=== PATIENT | female | born 1975 | race Two or more races ===

== ENCOUNTER 2016-03-16 19:11 | Emergency (ER) | payer OTHER ==
[2016-03-16 19:49] VITALS: BP 128/69; PULSE 73; TEMP 98; BMI 26.6
[2016-03-16] MEDS ORDERED: CYCLOBENZAPRINE HCL 10 MG TABLET (FP) ONE (20:17)
[2016-03-16] MEDS ORDERED: KETOROLAC TROMETHAMINE 60 MG/2 ML VIAL ONE (20:17)
[2016-03-16] MEDS ORDERED: CYCLOBENZAPRINE HCL 10 MG TABLET (FP) PO ONE (20:21)
[2016-03-16] MEDS ORDERED: KETOROLAC TROMETHAMINE 60 MG/2 ML VIAL IM ONE (20:22)
--- NOTE | 2016-03-16 20:34 | PDOC ---
History of Present Illness - General Chief Complaint: Head/Neck problem Stated Complaint: NECK PAIN Time Seen by Provider: 03/16/16 19:52 History Source: Patient - History of Present Illness Timing/Duration: other Severity: moderate Associated Symptoms: denies: fever/chills, headaches, weakness Past History - Past Medical History Allergies/Adverse Reactions: Allergies Allergy/AdvReac Type Severity Reaction Status Date / Time No Known Allergies Allergy Verified 03/16/16 19:44 Home Medications: Ambulatory Orders No Home Medications 0 dose .ROUTE UTDICT 06/22/13 Acetaminophen [Tylenol] 650 mg PO Q6H #30 tablet 03/16/16 Cyclobenzaprine HCl [Flexeril -] 10 mg PO HS #9 tablet 03/16/16 Cancer: Yes (palpitations) - Psycho/Social/Smoking Cessation Hx Anxiety: No Suicidal Ideation: No Smoking Status: No Smoking History: Never smoked Have you smoked in the past 12 months: No Number of Cigarettes Smoked Daily: 0 Hx Alcohol Use: No Drug/Substance Use Hx: No Substance Use Type: None Review of Systems - Review of Systems Constitutional: No: Chills, Fever Musculoskeletal: Yes: Neck Pain Neurological: No: Headache, Numbness, Tingling, Weakness *Physical Exam - Vital Signs Last Vital Signs Temp Pulse Resp BP Pulse Ox 98 F 73 18 128/69 100 03/16/16 19:44 03/16/16 19:44 03/16/16 19:44 03/16/16 19:44 03/16/16 19:44 - Physical Exam General Appearance: Yes: Appropriately Dressed. No: Apparent Distress HEENT: positive: Normal Voice Neck: positive: Tender (to R trapezius). negative: Decreased range of motion, Lymphadenopathy (R), Lymphadenopathy (L) Respiratory/Chest: negative: Respiratory Distress Integumentary: positive: Dry, Warm Neurologic: positive: Fully Oriented, Alert, Normal Mood/Affect Medical Decision Making - Medical Decision Making 03/16/16 20:35 40-year-old female, no significant history, here with right-sided neck pain that patient awoke with this a.m. States pain worse with range of motion. Has not taken anything for symptoms. Denies headache, upper extremity weakness, dizziness, nausea or vomiting. Patient well-appearing and stable with + tenderness to palpation over right trapezius, full range of motion intact. Most likely muscular, no red flags. DC with pain control *DC/Admit/Observation/Transfer Diagnosis at time of Disposition: Neck pain - Discharge Dispostion Disposition: HOME Condition at time of disposition: Improved - Prescriptions Prescriptions: Cyclobenzaprine HCl [Flexeril -] 10 mg PO HS #9 tablet Acetaminophen [Tylenol] 650 mg PO Q6H #30 tablet - Patient Instructions Printed Discharge Instructions: DI for Neck Pain Additional Instructions: Take medication as directed until pain resolves
== END 2016-03-16 20:39 | disposition home or self-care (01) ==
LOC: JERFT 19:11 → JER 19:11 → JERFT 20:39
PROC: 3E0233Z Introduction of Anti-inflammatory into Muscle, Percutaneous Approach (ICD-10-PCS; principal; 2016-03-16)
DX: M54.2 Cervicalgia (principal)
CPT/HCPCS: 96372; 99281-25

== ENCOUNTER 2016-06-19 10:05 | Emergency (ER) | payer OTHER ==
[2016-06-19 10:09] VITALS: BP 110/62; PULSE 72; TEMP 97.9; BMI 29.9
--- NOTE | 2016-06-19 11:20 | PDOC ---
History of Present Illness - General Chief Complaint: Ear Problem Stated Complaint: LT EAR/AXILIA PAIN Time Seen by Provider: 06/19/16 10:42 - History of Present Illness Initial Comments: 06/19/16 11:19 CHIEF COMPLAINT: ear pain, breast discomfort HISTORY OF PRESENT ILLNESS: 41 yo F with no PMH presents to ED with left ear pain x 1 day. Patient also c/o breast discomfort - she states she saw quality assurance associate yesterday, and was given a rx for breast ultrasound. Patient denies fever, nausea, vomiting, diarrhea. No recent travel or sick contacts. PAST MEDICAL HISTORY: Denies past medical history FAMILY HISTORY: Denies SOCIAL HISTORY:Denies tobacco, alcohol, illicit drug use. SURGICAL HISTORY: Denies ALLERGIES: No known drug allergies REVIEW OF SYSTEMS General/Constitutional: Denies fever or chills. Denies weakness, weight change. HEENT: pain to L ear since yesterday. Denies change in vision. Denies ear pain or discharge. Denies sore throat. Cardiovascular: Denies chest pain or shortness of breath. Respiratory: Denies cough, wheezing, or hemoptysis. Gastrointestinal: Denies nausea, vomiting, diarrhea or constipation. Denies rectal bleeding. Genitourinary: Denies dysuria, frequency, or change in urination. Musculoskeletal: Denies joint or muscle swelling or pain. Denies neck or back pain. Skin and breasts: Discomfort to L breast. PHYSICAL EXAM General Appearance: Well-appearing, appropriately dressed. No apparent distress , no intoxication. HEENT: Impacted cerumen to L ear with tenderness to tragus. No tenderness to mastoid. EOMI, PERRLA, normal ENT inspection, normal voice. No conjunctival pallor. No photophobia, scleral icterus. Respiratory/Chest: Lungs CTAB. Cardiovascular: RRR. S1, S2. Gastrointestinal/Abdominal: Normal bowel sounds. Abdomen soft, non-distended. No tenderness or rebound tenderness. No organomegaly, pulsatile mass, guarding , hernia, hepatomegaly, splenomegaly. Musculoskeletal/Extremities: Normal inspection. FROM of all extremities, normal capillary refill. Pelvis Stable. No CVA tenderness. No tenderness to extremities, pedal edema, swelling, erythema or deformity. Integumentary: Appropriate color, dry, warm. No cyanosis, erythema, jaundice or rash Neurologic: family assessment worker II-XII intact. Fully oriented, alert. Appropriate mood/affect. Motor strength 5/5. No appreciable EOM palsy, facial droop or sensory deficit. Past History - Past Medical History Allergies/Adverse Reactions: Allergies Allergy/AdvReac Type Severity Reaction Status Date / Time No Known Allergies Allergy Verified 06/19/16 10:09 Home Medications: Ambulatory Orders NK [No Known Home Medication] 06/19/16 Cancer: Yes (palpitations) Other medical history: denies - Psycho/Social/Smoking Cessation Hx Anxiety: No Suicidal Ideation: No Smoking Status: No Smoking History: Never smoked Have you smoked in the past 12 months: No Number of Cigarettes Smoked Daily: 0 Information on smoking cessation initiated: No Hx Alcohol Use: No Drug/Substance Use Hx: No Substance Use Type: None *Physical Exam - Vital Signs Last Vital Signs Temp Pulse Resp BP Pulse Ox 97.9 F 72 18 110/62 99 06/19/16 10:07 06/19/16 10:07 06/19/16 10:07 06/19/16 10:07 06/19/16 10:07 Medical Decision Making - Medical Decision Making 06/19/16 11:53 41 yo F with no PMH presents to fast track with cerumen impaction of L ear. -cerumen removal Advised patient to return for US on Tuesday as outpatient. Advised patient of signs and symptoms for return to ER; patient verbalized jannetteina haydee hitchcock to plan. 06/19/16 15:56 *DC/Admit/Observation/Transfer Diagnosis at time of Disposition: Impacted cerumen of left ear - Discharge Dispostion Disposition: HOME Condition at time of disposition: Stable Admit: No - Referrals Referrals: Archie Abdullahi [Primary Care Provider] - - Patient Instructions Printed Discharge Instructions: DI for Cerumen Impaction Additional Instructions: Please follow up with your bakery associate for continued management of your breast pain. You must return on Tuesday for the ultrasound as an outpatient procedure. If you experience any fever, nausea, vomiting, diarrhea, headache, chest pain , shortness of breath, or any new or worsening symptoms, please return to the ER. Por favor, siga con skinner gineclogo para el manejo continuo de skinner dolor de seno. Debe regresar el para el ultrasonido charles procedimiento ambulatorio. Si experimenta fiebre, nuseas, vmitos, diarrea, dolor de caren, dolor de pecho, dificultad para respirar, o cualquier nuevo o empeoramiento de los sntomas, por favor regrese a la ochoa de emergencias. Print Language: TUVALUAN
--- NOTE | 2016-06-19 12:04 | PDOC ---
History of Present Illness - General Chief Complaint: Ear Problem Stated Complaint: LT EAR/AXILIA PAIN Time Seen by Provider: 06/19/16 10:42 - History of Present Illness Initial Comments: 06/19/16 11:59 CHIEF COMPLAINT: HISTORY OF PRESENT ILLNESS: 41 yo F with hx No recent travel or sick contacts. PAST MEDICAL HISTORY: Denies past medical history FAMILY HISTORY: Denies SOCIAL HISTORY: Lives at home with ____. Occupation: . Denies tobacco, alcohol, illicit drug use. SURGICAL HISTORY: Denies ALLERGIES: No known drug allergies REVIEW OF SYSTEMS General/Constitutional: Denies fever or chills. Denies weakness, weight change. HEENT: Denies change in vision. Denies ear pain or discharge. Denies sore throat. Cardiovascular: Denies chest pain or shortness of breath. Respiratory: Denies cough, wheezing, or hemoptysis. Gastrointestinal: Denies nausea, vomiting, diarrhea or constipation. Denies rectal bleeding. Genitourinary: Denies dysuria, frequency, or change in urination. Musculoskeletal: Denies joint or muscle swelling or pain. Denies neck or back pain. Skin and breasts: Denies rash or easy bruising. Neurologic: Denies headache, vertigo, loss of consciousness, or loss of sensation. Psychiatric: Denies depression or anxiety. Endocrine: Denies increased thirst. Denies abnormal weight change. Hematologic/Lymphatic: Denies anemia, easy bleeding, or history of blood clots. Allergic/Immunologic: Denies hives or skin allergy. Denies latex allergy. PHYSICAL EXAM General Appearance: Well-appearing, appropriately dressed. No apparent distress , no intoxication. HEENT: EOMI, PERRLA, normal ENT inspection, normal voice, TMs normal, pharynx normal. No conjunctival pallor. No photophobia, scleral icterus. Neck: Supple. Trachea midline. No tenderness, rigidity, carotid bruit, stridor , lymphadenopathy, or thyromegaly. Respiratory/Chest: Lungs CTAB. No shortness of breath, chest tenderness, respiratory distress, accessory muscle use. No crackles, rales, rhonchi, stridor , wheezing, dullness Cardiovascular: RRR. S1, S2. No JVD, murmur, bradycardia, tachycardia. Vascular Pulses: Dorsalis-Pedis (R): 2+, Dorsalis-Pedis (L): 2+ Gastrointestinal/Abdominal: Normal bowel sounds. Abdomen soft, non-distended. No tenderness or rebound tenderness. No organomegaly, pulsatile mass, guarding , hernia, hepatomegaly, splenomegaly. Lymphatic: No adenopathy, tenderness. Musculoskeletal/Extremities: Normal inspection. FROM of all extremities, normal capillary refill. Pelvis Stable. No CVA tenderness. No tenderness to extremities, pedal edema, swelling, erythema or deformity. Integumentary: Appropriate color, dry, warm. No cyanosis, erythema, jaundice or rash Neurologic: institutional asset manager II-XII intact. Fully oriented, alert. Appropriate mood/affect. Motor strength 5/5. No appreciable EOM palsy, facial droop or sensory deficit. Past History - Past Medical History Allergies/Adverse Reactions: Allergies Allergy/AdvReac Type Severity Reaction Status Date / Time No Known Allergies Allergy Verified 06/19/16 10:09 Home Medications: Ambulatory Orders NK [No Known Home Medication] 06/19/16 Cancer: Yes (palpitations) Other medical history: denies - Psycho/Social/Smoking Cessation Hx Anxiety: No Suicidal Ideation: No Smoking Status: No Smoking History: Never smoked Have you smoked in the past 12 months: No Number of Cigarettes Smoked Daily: 0 Information on smoking cessation initiated: No Hx Alcohol Use: No Drug/Substance Use Hx: No Substance Use Type: None *Physical Exam - Vital Signs Last Vital Signs Temp Pulse Resp BP Pulse Ox 97.9 F 72 18 110/62 99 06/19/16 10:07 06/19/16 10:07 06/19/16 10:07 06/19/16 10:07 06/19/16 10:07 *DC/Admit/Observation/Transfer Diagnosis at time of Disposition: Impacted cerumen of left ear - Discharge Dispostion Disposition: HOME Condition at time of disposition: Stable - Referrals Referrals: Archie Abdullahi [Primary Care Provider] - - Patient Instructions Printed Discharge Instructions: DI for Cerumen Impaction Additional Instructions: Please follow up with your headliner installer for continued management of your breast pain. You must return on Tuesday for the ultrasound as an outpatient procedure. If you experience any fever, nausea, vomiting, diarrhea, headache, chest pain , shortness of breath, or any new or worsening symptoms, please return to the ER. Por favor, siga con skinner gineclogo para el manejo continuo de skinner dolor de seno. Debe regresar el lunes para el ultrasonido charles procedimiento ambulatorio. Si experimenta fiebre, nuseas, vmitos, diarrea, dolor de caren, dolor de pecho, dificultad para respirar, o cualquier nuevo o empeoramiento de los sntomas, por favor regrese a la ochoa de emergencias. Print Language: TURKISH - Post Discharge Activity
== END 2016-06-19 11:59 | disposition home or self-care (01) ==
LOC: JERFT 10:05
PROC: 3E1B78Z Irrigation of Ear using Irrigating Substance, Via Natural or Artificial Opening (ICD-10-PCS; principal; 2016-06-19)
DX: H61.22 Impacted cerumen, left ear (principal); N64.4 Mastodynia
CPT/HCPCS: 69209; 99281-25

== ENCOUNTER 2016-07-07 10:54 | Emergency (ER) | payer OTHER ==
[2016-07-07 10:57] VITALS: BP 116/70; PULSE 79; TEMP 98; BMI 29.1
--- NOTE | 2016-07-07 12:02 | PDOC ---
History of Present Illness - General Chief Complaint: Cold Symptoms Stated Complaint: ALLERGIES Time Seen by Provider: 07/07/16 11:54 History Source: Patient Exam Limitations: No Limitations - History of Present Illness Initial Comments: 07/07/16 12:45 Chief complaint: ALLERGIES Patient is a 41-year-old female with no medical history who is complaining in triage of nasal congestion, itchy eyes for 5 days. Patient states she had this last year and uses Lanette and tried Lanette but it's not working. No fever, does not feel ill, otherwise no complaints. And appears comfortable with mild nasal congestion, no eye swelling or redness. GENERAL/CONSTITUTIONAL: No fever, weakness. dizziness HEAD, EYES, EARS, NOSE AND THROAT: No change in vision. No ear pain or discharge. No sore throat. + Nasal congestion CARDIOVASCULAR: No chest pain RESPIRATORY: No shortness of breath or cough GASTROINTESTINAL: No pain, nausea, vomiting, diarrhea or constipation GENITOURINARY: No dysuria MUSCULOSKELETAL: No neck or back pain SKIN: No rash NEUROLOGIC: No headache, vertigo, loss of consciousness, or loss of sensation. GENERAL: The patient is awake, alert, and fully oriented, in no acute distress. HEAD: Normal with no signs of trauma. EYES: Pupils equal, round and reactive to light, sclera anicteric, conjunctiva clear. ENT: pharynx: no erythema, no exudate, uvula midline NECK: supple CHEST: clear, nontender, rr ABD: soft, nontender EXTREMITIES: Normal range of motion, no edema. NEUROLOGICAL: Normal speech, normal gait. SKIN: Warm, Dry Past History - Past Medical History Allergies/Adverse Reactions: Allergies Allergy/AdvReac Type Severity Reaction Status Date / Time No Known Allergies Allergy Verified 07/07/16 10:57 Home Medications: Ambulatory Orders NK [No Known Home Medication] 06/19/16 Cancer: Yes (palpitations) - Psycho/Social/Smoking Cessation Hx Anxiety: No Suicidal Ideation: No Smoking Status: No Smoking History: Never smoked Have you smoked in the past 12 months: No Number of Cigarettes Smoked Daily: 0 Hx Alcohol Use: No Drug/Substance Use Hx: No Substance Use Type: None *Physical Exam - Vital Signs Last Vital Signs Temp Pulse Resp BP Pulse Ox 98.0 F 79 20 116/70 100 07/07/16 10:54 07/07/16 10:54 07/07/16 10:54 07/07/16 10:54 07/07/16 10:54 Medical Decision Making - Medical Decision Making 07/07/16 12:49 He is all ALLERGIES for 5 days, not relieved by Lanette, discussed with patient fully, explained to patient and most of the medications that you used any prescription for R [id number] and how she probably needs a decongestant, she has no history of high blood pressure or any comorbidities that would limit what she takes for ALLERGIES. Recommended patient take Claritin-D as a start and then further discuss with her doctor or follow up with outdoor adventure instructor if the ALLERGIES continued to be very resistant [id number] treatment. *DC/Admit/Observation/Transfer Diagnosis at time of Disposition: Seasonal allergies Qualifiers: Allergic rhinitis trigger: unspecified Qualified Code(s): J30.2 - Other seasonal allergic rhinitis - Discharge Dispostion Disposition: HOME Condition at time of disposition: Stable - Referrals Referrals: Archie Abdullahi [Primary Care Provider] - - Patient Instructions Printed Discharge Instructions: Allergic Rhinitis Additional Instructions: You should try Claritin-D or any other of the ALLERGY medicines that have D, Sudafed in them. You should not have to use drops and pills and a nose spray. He said that your ALLERGIES seem to be worse than normal and this should help. If this does not help you should follow-up with your doctor and then you might need to see an outdoor adventure instructor to be tested to see what is giving her the ALLERGIES and give you different treatment. Usted debe probar Claritin-D o cualquier otro de los medicamentos de ALERGIA que tienen D, Sudafed en ellos. Usted no debe tener que usar gotas y pldoras y un spray de nariz. Dijo que axel alergias parecen ser peores de lo normal y esto debera ayudar. Si esto no le ayuda a usted debe hacer un seguimiento con skinner m dico y entonces usted puede ser que necesite apolonia a un alergista para ser probado para apolonia lo que est dandole las alergias y darle el tratamiento diferente
== END 2016-07-07 13:01 | disposition home or self-care (01) ==
LOC: JERFT 10:54
DX: J30.2 Other seasonal allergic rhinitis (principal)
CPT/HCPCS: 99281-25

== ENCOUNTER 2016-11-26 12:53 | Emergency (ER) | payer OTHER ==
[2016-11-26 13:01] VITALS: BP 112/69; PULSE 74; TEMP 98.6; BMI 28.1
--- NOTE | 2016-11-26 14:02 | PDOC ---
History of Present Illness - General Chief Complaint: Ear Problem Stated Complaint: EAR PAIN Time Seen by Provider: 11/26/16 13:17 - History of Present Illness Initial Comments: 11/26/16 13:59 CHIEF COMPLAINT: R ear pain HISTORY OF PRESENT ILLNESS: 41 yo F presents to ED with pain to R ear since last night. Patient denies fever, chills, nausea, vomiting, diarrhea but complains she has had a lot of congestion this week Denies cough, wheezing, runny nose. PAST MEDICAL HISTORY: Denies past medical history FAMILY HISTORY: Denies SOCIAL HISTORY: Denies tobacco, alcohol, illicit drug use. SURGICAL HISTORY: Denies ALLERGIES: No known drug allergies REVIEW OF SYSTEMS General/Constitutional: Denies fever or chills. Denies weakness, weight change. HEENT: Congestion, R ear pain. Denies change in vision. Denies ear pain or discharge. Denies sore throat. Cardiovascular: Denies chest pain or shortness of breath. Respiratory: Denies cough, wheezing, or hemoptysis. Gastrointestinal: Denies nausea, vomiting, diarrhea or constipation. Denies rectal bleeding. Genitourinary: Denies dysuria, frequency, or change in urination. Musculoskeletal: Denies joint or muscle swelling or pain. Denies neck or back pain. Skin and breasts: Denies rash or easy bruising. PHYSICAL EXAM General Appearance: Well-appearing, appropriately dressed. No apparent distress , no intoxication. HEENT: Cerumen impaction to R ear. Congestion, rhinorrhea. EOMI, PERRLA, normal voice, TMs normal, pharynx normal. No conjunctival pallor. No photophobia, scleral icterus. Neck: Supple. Trachea midline. No tenderness, rigidity, carotid bruit, stridor , lymphadenopathy, or thyromegaly. Respiratory/Chest: Lungs CTAB. Cardiovascular: RRR. S1, S2. Gastrointestinal/Abdominal: Normal bowel sounds. Abdomen soft, non-distended. No tenderness or rebound tenderness. No organomegaly, pulsatile mass, guarding , hernia, hepatomegaly, splenomegaly. Musculoskeletal/Extremities: Normal inspection. FROM of all extremities, normal capillary refill. Pelvis Stable. No CVA tenderness. No tenderness to extremities, pedal edema, swelling, erythema or deformity. Integumentary: Appropriate color, dry, warm. No cyanosis, erythema, jaundice or rash Neurologic: press secretary II-XII intact. Fully oriented, alert. Appropriate mood/affect. Motor strength 5/5. No appreciable EOM palsy, facial droop or sensory deficit. Past History - Past Medical History Allergies/Adverse Reactions: Allergies Allergy/AdvReac Type Severity Reaction Status Date / Time No Known Allergies Allergy Verified 11/26/16 13:01 Home Medications: Ambulatory Orders Pseudoephedrine HCl [Sudafed 12 Hour] 120 mg PO BID #14 tablet.er 11/26/16 Cancer: Yes (palpitations) - Suicide/Smoking/Psychosocial Hx Smoking Status: No Smoking History: Never smoked Have you smoked in the past 12 months: No Number of Cigarettes Smoked Daily: 0 Information on smoking cessation initiated: No Hx Alcohol Use: No Drug/Substance Use Hx: No Substance Use Type: None *Physical Exam - Vital Signs Last Vital Signs Temp Pulse Resp BP Pulse Ox 98.6 F 74 19 112/69 99 11/26/16 12:59 11/26/16 12:59 11/26/16 12:59 11/26/16 12:59 11/26/16 12:59 Medical Decision Making - Medical Decision Making 11/26/16 14:01 41 yo F presents to ED with pain to R ear since last night. -R ear completed blocked with cerumen Cerumen removed, no evidence of otitis media or otitis externa; patient expresses relief. Sudafed rx sent to pharm. *DC/Admit/Observation/Transfer Diagnosis at time of Disposition: Impacted cerumen of right ear - Discharge Dispostion Disposition: HOME Condition at time of disposition: Stable Admit: No - Prescriptions Prescriptions: Pseudoephedrine HCl [Sudafed 12 Hour] 120 mg PO BID #14 tablet.er - Referrals Referrals: Archie Abdullahi [Primary Care Provider] - - Patient Instructions Printed Discharge Instructions: DI for Nasal Congestion, DI for Cerumen Impaction Print Language: MALAY
== END 2016-11-26 14:07 | disposition home or self-care (01) ==
LOC: JERFT 12:53
PROC: 3E1B78Z Irrigation of Ear using Irrigating Substance, Via Natural or Artificial Opening (ICD-10-PCS; principal; 2016-11-26)
DX: H61.21 Impacted cerumen, right ear (principal)
CPT/HCPCS: 69209; 99281-25

== ENCOUNTER 2018-04-22 04:46 | Emergency (ER) | payer OTHER ==
[2018-04-22 04:51] VITALS: BP 112/64; PULSE 100; TEMP 97.6; BMI 25.7
[2018-04-22] MEDS ORDERED: SODIUM CHLORIDE 1,000 ML IV STA (05:00)
--- NOTE | 2018-04-22 05:03 | PDOC ---
Attending Attestation - Resident Resident Name: Cortez Ellison - ED Attending Attestation I have performed the following: I have examined & evaluated the patient, The case was reviewed & discussed with the resident, I agree w/resident's findings & plan - HPI HPI: 04/22/18 05:57 Pt had a syncopal/near syncopal episode in the diner today. She was with friends and hubby and she didn;t hit her head. - Physicial Exam PE: 04/22/18 05:58 Agree with resident exam - Medical Decision Making 04/22/18 05:58 EKG pending Labs normal so far. Pt is . She will be signed out to the day team for sonogram to r/o ectopic etc.
--- NOTE | 2018-04-22 05:18 | PDOC ---
History of Present Illness - General Chief Complaint: Syncope/Near Syncope Stated Complaint: SYNCOPE Time Seen by Provider: 04/22/18 04:59 History Source: Patient Exam Limitations: Language Barrier - History of Present Illness Initial Comments: 42 yo F w no reported pmh presents to the ER after a witnessed syncopal episode. The patient was eating at a restaurant when she stood up, became extremely lightheaded and felt like she was going to pass out. She immediately sat back down and then proceeded to pass out for around 30 seconds. The who is with her at bedside states that she indeed did syncopize for around 30 seconds while she was sitting down but did not fall down and did not hit her head or hit anything else. She states that before she fell down she felt very lightheaded and that her heart was racing and she was short of breath. She states that her LMP was 2 months prior but says "it is impossible for her to be right now." She states she was not drinking or using any substances tonight before the syncopal episode. She denies having had any chest pain, headache, blurry vision, vertigo, numbness , weakness, tingling, dysuria, frequency, urgency. PCP: Archie Abdullahi PSH: None reported Allergies: NKA, NKDA Social Hx: Denies smoking, drinking, or other substance usage. Past History - Past Medical History Allergies/Adverse Reactions: Allergies Allergy/AdvReac Type Severity Reaction Status Date / Time No Known Allergies Allergy Verified 04/22/18 04:50 Home Medications: Ambulatory Orders NK [No Known Home Medication] 04/22/18 Cancer: Yes (palpitations) COPD: No - Immunization History Immunization Up to Date: Yes - Suicide/Smoking/Psychosocial Hx Smoking Status: No Smoking History: Never smoked Have you smoked in the past 12 months: No Number of Cigarettes Smoked Daily: 0 Information on smoking cessation initiated: No Hx Alcohol Use: No Drug/Substance Use Hx: No Substance Use Type: None Review of Systems - Review of Systems Able to Perform ROS?: Yes Comments:: CONSTITUTIONAL: Absent: fever, no chills, no fatigue EYES: Absent: visual changes ENT: Absent: ear pain, no sore throat CARDIOVASCULAR: Present: Syncope, palpitations, lightheadedness Absent: irregular heart rate, peripheral edema RESPIRATORY: Present: SOB Absent: cough GI: Present: Nausea Absent: abdominal pain, no vomiting, no constipation, no diarrhea GENITOURINARY: Absent: dysuria, no frequency, no hematuria MUSKULOSKELETAL: Absent: back pain, no arthralgia, no myalgia SKIN: Absent: rash NEURO: Absent: headache *Physical Exam - Vital Signs Last Vital Signs Temp Pulse Resp BP Pulse Ox 97.6 F 100 H 18 112/64 99 04/22/18 04:50 04/22/18 04:50 04/22/18 04:50 04/22/18 04:50 04/22/18 04:50 - Physical Exam Comments: GENERAL: Well-appearing, well-nourished. No apparent distress. HEENT: Normocephalic, atraumatic. PERRL, EOM intact. CARDIOVASCULAR: Tachycardic rate. Normal S1, S2. Regular rhythm. PULMONARY: No evidence of respiratory distress. Lungs clear to auscultation bilaterally. No wheezing, rales or rhonchi. ABDOMEN: Soft, non-distended, non-tender. EXTREMITIES: Normal ROM in all four extremities. No gross deformities. SKIN: Warm, dry. No rash NEUROLOGICAL: No focal neurological deficits. Moderate Sedation - Procedure Monitoring Vital Signs: Procedure Monitoring Vital Signs Temperature 97.6 F 04/22/18 04:50 Pulse Rate 100 H 04/22/18 04:50 Respiratory Rate 18 04/22/18 04:50 Blood Pressure 112/64 04/22/18 04:50 O2 Sat by Pulse Oximetry (%) 99 04/22/18 04:50 ED Treatment Course - LABORATORY CBC & Chemistry Diagram: 04/22/18 05:11 04/22/18 05:11 - ADDITIONAL ORDERS Additional order review: Laboratory Results 04/22/18 04/22/18 04/22/18 05:11 05:11 05:02 PT with INR 12.70 INR 1.08 Sodium 136 Potassium 3.9 Chloride 107 Carbon Dioxide 21 Anion Gap 9 BUN 16 Creatinine 0.8 Creat Clearance w eGFR > 60 Random Glucose 100 Calcium 9.3 Total Bilirubin 0.1 L AST 10 L ALT 18 Alkaline Phosphatase 88 Creatine Kinase 146 Troponin I < 0.02 Total Protein 8.0 Albumin 3.9 Urine Color Urine Appearance Urine pH Ur Specific [place] Urine Protein Urine Glucose (UA) Urine Ketones Urine Blood Urine Nitrite Urine Bilirubin Urine Urobilinogen Ur Leukocyte Esterase Urine WBC (Auto) Urine RBC (Auto) Ur Epithelial Cells Urine Bacteria Granular Casts Urine Mucus Urine HCG, Qual Positive 04/22/18 05:01 PT with INR INR Sodium Potassium Chloride Carbon Dioxide Anion Gap BUN Creatinine Creat Clearance w eGFR Random Glucose Calcium Total Bilirubin AST ALT Alkaline Phosphatase Creatine Kinase Troponin I Total Protein Albumin Urine Color Ltyellow Urine Appearance Slcloudy Urine pH 5.0 Ur Specific [place] 1.019 Urine Protein 1+ H Urine Glucose (UA) Negative Urine Ketones Negative Urine Blood Negative Urine Nitrite Negative Urine Bilirubin Negative Urine Urobilinogen Negative Ur Leukocyte Esterase Negative Urine WBC (Auto) 3 Urine RBC (Auto) <1 Ur Epithelial Cells Rare Urine Bacteria Rare Granular Casts 8 Urine Mucus Few Urine HCG, Qual - Medications Given in the ED: ED Medications Discontinued Medications Generic Name Dose Route Start Last Admin Trade Name Freq PRN Reason Stop Dose Admin Sodium Chloride 1,000 mls @ 1,000 mls/hr 04/22/18 05:00 04/22/18 05:18 Normal Saline - IV 04/22/18 05:59 1,000 mls/hr ASDIR STA Administration Medical Decision Making - Medical Decision Making 42 yo F w a pmh of ...... presents to the ER after a witnessed syncopal episode. The patient was eating at a restaurant when she stood up, became extremely lightheaded and felt like she was going to pass out. She immediately sat back down and then proceeded to pass out for around 30 seconds. The who is with her at bedside states that she indeed did syncopize for around 30 seconds while she was sitting down but did not fall down and did not hit her head or hit anything else. She states that before she fell down she felt very lightheaded and that her heart was racing and she was short of breath. She states that her LMP was 2 months prior but says "it is impossible for her to be right now." She states she was not drinking or using any substances tonight before the syncopal episode. VS: Tachycardic DDx IBNLT: Arrhythmia, ACS/MO, electrolyte disturbance, dehydration, vasovagal syncope, orthostatic hypotension. Plan: Labs, EKG, Urine, CXR, IV hydration, re-assess. *DC/Admit/Observation/Transfer Diagnosis at time of Disposition: Syncope and collapse, - Discharge Dispostion Condition at time of disposition: Stable - Referrals Referrals: Archie Abdullahi [Primary Care Provider] - - Patient Instructions - Post Discharge Activity
[2018-04-22 05:36] LABS: URINE APPEARANCE SLCLOUDY; URINE BILIRUBIN NEGATIVE (<2.0 mg/dL); URINE COLOR LTYELLOW; URINE GLUCOSE (UA) NEGATIVE (NEGATIVE); URINE KETONE NEGATIVE (NEGATIVE); URINE LEUK ESTERASE NEGATIVE (NEGATIVE); URINE NITRITE NEGATIVE (NEGATIVE); URINE PROTEIN 1+ (NEGATIVE); URINE UROBILINOGEN NEGATIVE mg/dL (0.2-1.0)
[2018-04-22 05:38] LABS: INR 1.08 (0.83-1.09); PROTHROMBIN TIME (PATIENT) 12.7 SEC (9.7-13.0)
[2018-04-22 05:52] LABS: EPI CELLS RARE /HPF (FEW); GRANULAR CASTS 8 /lpf; URINE BACTERIA RARE /hpf (NONE SEEN); URINE MUCUS FEW
[2018-04-22 05:54] LABS: BASO % 0.7 % (0-2.0); EOS % 2.9 % (0-4.5); HEMATOCRIT 38.6 % (32.4-45.2); HEMOGLOBIN 13.6 GM/dL (10.7-15.3); LYMPH % 23.7 % (8-40); MCH 31.1 pg (25.7-33.7); MCHC 35.3 g/dl (32.0-36.0); MEAN PLT VOLUME 8.8 fl (7.5-11.1); MONO % 7.8 % (3.8-10.2); NEUT % 64.9 % (42.8-82.8); PLATELET COUNT 280 K/MM3 (134-434); RBC 4.39 M/mm3 (3.60-5.2); RDW 14.3 % (11.6-15.6); WHITE BLOOD COUNT 6.1 K/mm3 (4.0-10.0)
[2018-04-22 05:57] LABS: ALBUMIN 3.9 g/dl (3.4-5.0); ALK PHOS 88 U/L (45-117); ANION GAP 9 MMOL/L (8-16); BILIRUBIN,TOTAL 0.1 mg/dL (0.2-1); BLOOD UREA NITROGEN 16 mg/dL (7-18); CALCIUM 9.3 mg/dL (8.5-10.1); CHLORIDE 107 mmol/L (98-107); CO2 21 mmol/L (21-32); CREATININE 0.8 mg/dL (0.55-1.3); GLUCOSE,RANDOM 100 mg/dL (74-106); POTASSIUM 3.9 mmol/L (3.5-5.1); SGOT/AST 10 U/L (15-37); SGPT/ALT 18 U/L (13-61); SODIUM 136 mmol/L (136-145)
--- NOTE | 2018-04-22 07:34 | PDOC ---
*Physical Exam - Vital Signs Last Vital Signs Temp Pulse Resp BP Pulse Ox 97.6 F 100 H 18 112/64 99 04/22/18 04:50 04/22/18 04:50 04/22/18 04:50 04/22/18 04:50 04/22/18 04:50 ED Treatment Course - LABORATORY CBC & Chemistry Diagram: 04/22/18 05:11 04/22/18 05:11 - ADDITIONAL ORDERS Additional order review: Laboratory Results 04/22/18 04/22/18 04/22/18 06:16 05:11 05:11 PT with INR 12.70 INR 1.08 Sodium 136 Potassium 3.9 Chloride 107 Carbon Dioxide 21 Anion Gap 9 BUN 16 Creatinine 0.8 Creat Clearance w eGFR > 60 Random Glucose 100 Calcium 9.3 Total Bilirubin 0.1 L AST 10 L ALT 18 Alkaline Phosphatase 88 Creatine Kinase 146 Troponin I < 0.02 Total Protein 8.0 Albumin 3.9 Beta HCG, Quant 1836.7 Urine Color Urine Appearance Urine pH Ur Specific [place] Urine Protein Urine Glucose (UA) Urine Ketones Urine Blood Urine Nitrite Urine Bilirubin Urine Urobilinogen Ur Leukocyte Esterase Urine WBC (Auto) Urine RBC (Auto) Ur Epithelial Cells Urine Bacteria Granular Casts Urine Mucus Urine HCG, Qual 04/22/18 04/22/18 05:02 05:01 PT with INR INR Sodium Potassium Chloride Carbon Dioxide Anion Gap BUN Creatinine Creat Clearance w eGFR Random Glucose Calcium Total Bilirubin AST ALT Alkaline Phosphatase Creatine Kinase Troponin I Total Protein Albumin Beta HCG, Quant Urine Color Ltyellow Urine Appearance Slcloudy Urine pH 5.0 Ur Specific [place] 1.019 Urine Protein 1+ H Urine Glucose (UA) Negative Urine Ketones Negative Urine Blood Negative Urine Nitrite Negative Urine Bilirubin Negative Urine Urobilinogen Negative Ur Leukocyte Esterase Negative Urine WBC (Auto) 3 Urine RBC (Auto) <1 Ur Epithelial Cells Rare Urine Bacteria Rare Granular Casts 8 Urine Mucus Few Urine HCG, Qual Positive 04/22/18 05:11 RBC 4.39 MCV 88.0 MCHC 35.3 RDW 14.3 MPV 8.8 Neutrophils % 64.9 Lymphocytes % 23.7 Monocytes % 7.8 Eosinophils % 2.9 Basophils % 0.7 - Medications Given in the ED: ED Medications Discontinued Medications Generic Name Dose Route Start Last Admin Trade Name Freq PRN Reason Stop Dose Admin Sodium Chloride 1,000 mls @ 1,000 mls/hr 04/22/18 05:00 04/22/18 05:18 Normal Saline - IV 04/22/18 05:59 1,000 mls/hr ASDIR STA Administration Medical Decision Making - Medical Decision Making 04/22/18 19:19 Patient notified of results and offered admission. Refusing admission. Aware of results. Asking for information for medical . Referred to PP. *DC/Admit/Observation/Transfer Diagnosis at time of Disposition: Syncope and collapse, - Discharge Dispostion Disposition: AGAINST MEDICAL ADVICE Condition at time of disposition: Good Decision to Admit order: No - Referrals Referrals: Archie Abdullahi [Primary Care Provider] - Mercedes Peguero MD [Staff Physician] - - Patient Instructions Printed Discharge Instructions: DI for Syncope in Adults (Fainting) Additional Instructions: Please follow up with an OBGYN doctor in the next week. Please return in 2 days for additional testing to rule out an ectopic . Please return immediately if you have any new, worsening or concerning symptoms , especially fever, repeated syncope, and increased pain. Por favor gregory un seguimiento con un mdico obstetra en la prxima semana. Por favor regrese en 2 boyer para pruebas adicionales para descartar un embarazo ectpico. Regrese de inmediato si tiene sntomas nuevos, que empeoran o estn relacionados , especialmente fiebre, sncope repetido y aumento del dolor. Print Language: TAJIK - Post Discharge Activity
--- NOTE | 2018-04-22 22:00 | EKG ---
Test Reason : Blood Pressure : / mmHG Vent. Rate : 093 BPM Atrial Rate : 093 BPM P-R Int : 142 ms QRS Dur : 080 ms QT Int : 374 ms P-R-T Axes : 068 008 039 degrees QTc Int : 465 ms NORMAL SINUS RHYTHM NORMAL ECG WHEN COMPARED WITH ECG OF 06-DEC-2015 08:04, NO SIGNIFICANT CHANGE WAS FOUND Confirmed by ISMAEL MORGAN MD ([id number]) on 04/22/2018 10:00:01 PM Referred By: Confirmed By:ISMAEL MORGAN MD
== END 2018-04-22 11:31 | disposition left against medical advice (07) ==
LOC: JER 04:46
PROC: 3E0337Z Introduction of Electrolytic and Water Balance Substance into Peripheral Vein, Percutaneous Approach (ICD-10-PCS; principal; 2018-04-22)
DX: O26.891 Other specified pregnancy related conditions, first trimester (principal); R55 Syncope and collapse; Z3A.01 Less than 8 weeks gestation of pregnancy
CPT/HCPCS: 36415; 76817-TC; 80053; 81003; 81015; 82550; 84484; 84702; 84703; 85025; 85610; 86850; 86900; 86901; 93005; 93010; 96360; 99283-25; J7030

== ENCOUNTER 2018-07-25 16:03 | Emergency (ER) | payer OTHER ==
[2018-07-25 16:10] VITALS: BP 105/65; PULSE 75; TEMP 98.2; BMI 29.0
--- NOTE | 2018-07-25 16:11 | PDOC ---
Rapid Medical Evaluation Chief Complaint: Pain Time Seen by Provider: 07/25/18 16:09 Medical Evaluation: Allergies Allergy/AdvReac Type Severity Reaction Status Date / Time No Known Allergies Allergy Verified 04/22/18 04:50 07/25/18 16:09 43 year old female c/o LLQ pain radiating to left leg. no urinary symptoms, fever or chills PE: patient alert ox3 A: abdominal pain P: ua ucg patient to the ER for further management of caRE. 07/25/18 16:11 Discharge Disposition - Diagnosis Abdominal pain Qualifiers: Abdominal location: left lower quadrant Qualified Code(s): R10.32 - Left lower quadrant pain - Referrals - Patient Instructions - Post Discharge Activity
[2018-07-25 16:50] LABS: URINE APPEARANCE CLEAR; URINE BILIRUBIN NEGATIVE (NEGATIVE); URINE COLOR YELLOW; URINE GLUCOSE (UA) NEGATIVE (NEGATIVE); URINE KETONE NEGATIVE (NEGATIVE); URINE LEUK ESTERASE NEGATIVE (NEGATIVE); URINE NITRITE NEGATIVE (NEGATIVE); URINE PROTEIN NEGATIVE (NEGATIVE); URINE UROBILINOGEN 0.2 mg/dL (0.2-1.0)
[2018-07-25 16:53] LABS: HCG,QUALITATIVE URINE Negative
--- NOTE | 2018-07-25 17:07 | PDOC ---
History of Present Illness - General Chief Complaint: Pain Stated Complaint: RT SIDE ABD PAIN Time Seen by Provider: 07/25/18 16:09 History Source: Patient Exam Limitations: No Limitations - History of Present Illness Initial Comments: 07/25/18 17:02 43 yo female no sig pmh presents to the ED with left flank and LLQ abdominal pain for 2 days. Pt states the pain started suddenly while resting at home, no recent trauma, radiates from the left flank to left lower abdomen and into the left lower ext, pain described as sharp pressure with numbness/tingling intermittent. Denies hx of uti or kidney stones, pain/burning/blood on urination , saddle anesthesia, weakness in the leg, incontinence. denies F/C/N/V, changes in bowel habits, CP, SOB. Past History - Past Medical History Allergies/Adverse Reactions: Allergies Allergy/AdvReac Type Severity Reaction Status Date / Time No Known Allergies Allergy Verified 07/25/18 16:10 Home Medications: Ambulatory Orders NK [No Known Home Medication] 04/22/18 Cancer: Yes (palpitations) COPD: No - Reproductive History Therapeutic (s) & number: No - Immunization History Immunization Up to Date: Yes - Suicide/Smoking/Psychosocial Hx Smoking Status: No Smoking History: Never smoked Have you smoked in the past 12 months: No Number of Cigarettes Smoked Daily: 0 Information on smoking cessation initiated: No Hx Alcohol Use: No Drug/Substance Use Hx: No Substance Use Type: None Review of Systems - Review of Systems Constitutional: No: Chills, Fever Respiratory: No: Shortness of Breath Cardiac (ROS): No: Chest Pain, Edema ABD/GI: Yes: Other (LLQ abdominal pain). No: Constipated, Diarrhea : Yes: Flank Pain. No: Burning, Dysuria, Frequency, Hematuria, Incontinence Integumentary: No: Change in Color Neurological: No: Weakness *Physical Exam - Vital Signs Last Vital Signs Temp Pulse Resp BP Pulse Ox 98.2 F 75 17 105/65 100 07/25/18 16:08 07/25/18 16:08 07/25/18 16:08 07/25/18 16:08 07/25/18 16:08 - Physical Exam General Appearance: Yes: Nourished, Appropriately Dressed. No: Apparent Distress HEENT: positive: EOMI Neck: positive: Supple. negative: Carotid bruit Respiratory/Chest: positive: Lungs Clear, Normal Breath Sounds. negative: Crackles, Rales, Rhonchi, Stridor, Wheezing Cardiovascular: positive: Regular Rhythm, Regular Rate, S1, S2. negative: Edema , JVD, Murmur Vascular Pulses: Dorsalis-Pedis (R): 4+, Doralis-Pedis (L): 4+ Gastrointestinal/Abdominal: positive: Flat, Soft. negative: Protuberent, Distended, Guarding, Rebound, Tenderness Musculoskeletal: negative: CVA Tenderness Extremity: positive: Normal Capillary Refill, Normal Inspection, Normal Range of Motion Integumentary: positive: Normal Color, Dry, Warm Neurologic: positive: Fully Oriented, Alert, Normal Mood/Affect, Normal Response , Motor Strength 5/5, Numbness (positive straight leg raise on the left). negative: Sensory Deficit, Confused, Disoriented ED Treatment Course - ADDITIONAL ORDERS Additional order review: Laboratory Results 07/25/18 16:23 Urine Color Yellow Urine Appearance Clear Urine pH 5.0 Ur Specific [place] 1.014 Urine Protein Negative Urine Glucose (UA) Negative Urine Ketones Negative Urine Blood Negative Urine Nitrite Negative Urine Bilirubin Negative Urine Urobilinogen 0.2 Ur Leukocyte Esterase Negative Urine HCG, Qual Negative Medical Decision Making - Medical Decision Making 07/25/18 17:17 43 yo female no sig pmh presents to the ED with left flank and LLQ abdominal pain for 2 days. Pt states the pain started suddenly while resting at home, no recent trauma, radiates from the left flank to left lower abdomen and into the left lower ext, pain described as sharp pressure with numbness/tingling intermittent. Denies hx of uti or kidney stones, pain/burning/blood on urination , saddle anesthesia, weakness in the leg, incontinence. denies F/C/N/V, changes in bowel habits, CP, SOB. Vitals WNL Pt ambulates without difficulty, NAD, able to eat and drink Urine wnl U preg neg positive straight leg raise on the left Pt likely suffering from sciatica. Toradol injection with PCP f/u recommended Pt safe for DC home Pt agrees with and understands plan *DC/Admit/Observation/Transfer Diagnosis at time of Disposition: Sciatic leg pain - Discharge Dispostion Disposition: HOME Condition at time of disposition: Stable Decision to Admit order: No - Referrals - Patient Instructions Printed Discharge Instructions: DI for Sciatica Additional Instructions: Please see your Primary Doctor within the next 48 hurs. Take over the counter Motrin and Tylenol as needed for pain. Return to the ER for new or concerning symptoms including but not limited to: incontinence of urine or stool, change in sensation between your legs, weakness or inability to walk, high fevers. Thank you - Post Discharge Activity
[2018-07-25] MEDS ORDERED: KETOROLAC TROMETHAMINE 30 MG/1 ML VIAL IM ONE (17:39)
--- NOTE | 2018-07-25 17:56 | PDOC ---
Documentation entered by Jose Juan Ugarte SCRIBE, acting as scribe for Yvette Drake MD. Yvette Drake MD: This documentation has been prepared by the Shanel velasquez Matthew, SCRIBE, under my direction and personally reviewed by me in its entirety. I confirm that the documentation accurately reflects all work, treatment, procedures, and medical decision making performed by me. Attending Attestation - Resident Resident Name: Oscar Whatley - ED Attending Attestation I have performed the following: I have examined & evaluated the patient, The case was reviewed & discussed with the resident, I agree w/resident's findings & plan, Exceptions are as noted - HPI HPI: 07/25/18 17:48 43 yo female p/w low back pain radiating down her leg 07/25/18 17:52 Patient is a 43 year old female with no significant past medical history who presents to the ED with complaints of left lower quadrant pain that began x2 days ago. Patient reports experiencing gradual episodes of LLQ pain that she states began along her left flank and has started to radiate to her left lower abdomen and into left lower ext. She reports pain is an intermittent sharp pressured pain that has gradually increased in intensity over time, prompting her to come into the ED for further evaluation. Denies chest pain, sob. Denies nausea, vomiting. Denies fever, chills. Denies contact with sick individuals, out of state travelling. Denies dysuria, hematuria. Denies constipation, diarrhea. Denies any other symptoms. Allergies: NKDA. Social history: No smoking, No alcohol. No illicit drugs. Surgical history: None PMD: Dr. Abdullahi - Physicial Exam PE: 07/25/18 17:49 wnwd 43 yo female with low back pain radiating down buttocks and leg. No weakness,no numbness head ncat neck supple lungs cta b/l cvs [id number] abd nontender extremities no edema,sensation is intact skin warm and dry neuro axox3,no ataxia,motor strength 5/5, b/l, babinski downgoing - Medical Decision Making 07/25/18 17:51 imp: scaitica pt received toradol injection and d/c home
[2018-07-25] MEDS ORDERED: KETOROLAC TROMETHAMINE 30 MG/1 ML VIAL ONE (18:29)
== END 2018-07-25 18:30 | disposition home or self-care (01) ==
LOC: JER 16:03
PROC: 3E0233Z Introduction of Anti-inflammatory into Muscle, Percutaneous Approach (ICD-10-PCS; principal; 2018-07-25)
DX: M54.32 Sciatica, left side (principal)
CPT/HCPCS: 81003; 84703; 96372; 99281-25

== ENCOUNTER 2021-12-16 03:06 | Emergency (ER) | payer OTHER ==
[2021-12-16 03:18] VITALS: BMI 25.4
[2021-12-16] MEDS ORDERED: ACETAMINOPHEN 1000 MG/100 ML BAG IVPB ONE (03:22)
[2021-12-16] MEDS ORDERED: MAG HYDROX/AL HYDROX/SIMETH 30 ML UNIT-DOSE CUP PO ONE (03:22)
[2021-12-16] MEDS ORDERED: FAMOTIDINE 20 MG/50 ML IVPB 20 MG/50 ML MG IVPB ONE ×2 (03:22→03:49)
[2021-12-16] MEDS ORDERED: SODIUM CHLORIDE 0.9% 500 ML INFUS.BAG IV ONE (03:22)
[2021-12-16] MEDS ORDERED: METOCLOPRAMIDE HCL INJECTION 10 MG/2 ML VIAL ONE (03:48)
[2021-12-16] MEDS ORDERED: MAG HYDROX/AL HYDROX/SIMETH 30 ML UNIT-DOSE CUP ONE (03:49)
[2021-12-16] MEDS ORDERED: ACETAMINOPHEN INJECTION 100 ML IVPB ONE (03:49)
[2021-12-16] MEDS ORDERED: METOCLOPRAMIDE HCL INJECTION 10 MG/2 ML VIAL IVPB ONE (03:50)
[2021-12-16] MEDS: METOCLOPRAMIDE HCL INJECTION 10 MG/2 ML VIAL IVPUSH ONE ×2 (04:02→04:03)
[2021-12-16 04:11] LABS: BASO % 0.7 % (0-2.0); EOS % 3.3 % (0-4.5); HEMATOCRIT 38.1 % (32.4-45.2); LYMPH % 40.2 % (8-40); MCH 30.1 pg (25.7-33.7); MCHC 34.1 g/dl (32.0-36.0); MEAN CELL VOLUME 88.3 fl (80-96); MONO % 9.3 % (3.8-10.2); NEUT % 46.5 % (42.8-82.8); PLATELET COUNT 286 10^3/uL (134-434); RBC 4.31 M/mm3 (3.60-5.2); RDW 14.5 % (11.6-15.6); WHITE BLOOD COUNT 4.5 K/mm3 (4.0-10.0)
[2021-12-16 04:37] LABS: CALCIUM 8.8 mg/dL (8.5-10.1)
[2021-12-16 04:38] LABS: ALBUMIN 3.4 g/dl (3.4-5.0); BLOOD UREA NITROGEN 20.3 mg/dL (7-18)
[2021-12-16 04:41] LABS: CREATININE 0.9 mg/dL (0.55-1.3)
[2021-12-16 04:42] LABS: BILIRUBIN,TOTAL 0.2 mg/dL (0.2-1); TOT PROT 7.6 g/dl (6.4-8.2)
[2021-12-16 06:25] VITALS: BP 102/73; PULSE 72; RESP 16; TEMP 98
== END 2021-12-16 07:09 | disposition home or self-care (01) ==
LOC: JER 03:06
PROC: 3E033GC Introduction of Other Therapeutic Substance into Peripheral Vein, Percutaneous Approach (ICD-10-PCS; principal; 2021-12-16)
DX: M54.2 Cervicalgia (principal)
CPT/HCPCS: 0241U-QW; 36415; 70496-TC; 70498-TC; 71045-TC-FY; 80053; 83690; 84484; 84703; 85025; 93005; 93010; 99285-25; Q9967

== ENCOUNTER 2023-07-25 21:36 | Emergency (ER) | payer OTHER ==
[2023-07-25 21:41] VITALS: BP 118/81; PULSE 65; RESP 20; TEMP 98.2; BMI 27.4
[2023-07-25] MEDS ORDERED: SODIUM CHLORIDE 0.9% 500 ML INFUS.BAG IV ONE (22:48)
[2023-07-25] MEDS ORDERED: ACETAMINOPHEN 1000 MG/100 ML BAG IVPB ONE (22:48)
[2023-07-25] MEDS ORDERED: METOCLOPRAMIDE HCL INJECTION 10 MG/2 ML VIAL IVPUSH ONE (22:48)
== END 2023-07-26 00:13 | disposition left against medical advice (07) ==
LOC: JER 21:36
DX: R51.9 Headache, unspecified (principal); R11.0 Nausea; M25.561 Pain in right knee; G89.29 Other chronic pain
CPT/HCPCS: 99282-25

== ENCOUNTER 2023-11-01 20:54 | Emergency (ER) | payer OTHER ==
[2023-11-01 21:04] VITALS: BP 133/94; PULSE 70; RESP 17; TEMP 98.2; BMI 29.1
[2023-11-01] MEDS ORDERED: KETOROLAC TROMETHAMINE 60 MG/2 ML VIAL ONE (21:38)
[2023-11-01] MEDS ORDERED: METOCLOPRAMIDE HCL 10 MG TABLET (FP) PO ONE (21:38)
[2023-11-01] MEDS: KETOROLAC TROMETHAMINE 60 MG/2 ML VIAL IM ONE (21:47)
[2023-11-01] MEDS: METOCLOPRAMIDE HCL 10 MG TABLET (FP) PO ONE (21:47)
== END 2023-11-01 22:31 | disposition home or self-care (01) ==
LOC: FER 20:54
PROC: 3E0233Z Introduction of Anti-inflammatory into Muscle, Percutaneous Approach (ICD-10-PCS; principal; 2023-11-01)
DX: G43.909 Migraine, unspecified, not intractable, without status migrainosus (principal)
CPT/HCPCS: 99284-25

== ENCOUNTER 2024-02-24 14:43 | Emergency (ER) | payer OTHER ==
[2024-02-24 14:55] VITALS: BP 106/73; PULSE 69; RESP 20; TEMP 98.6; BMI 28.6
[2024-02-24] MEDS ORDERED: METHOCARBAMOL 500 MG TABLET ONE (15:29)
[2024-02-24] MEDS ORDERED: IBUPROFEN 400 MG TABLET (FP) PO ONE (15:38)
[2024-02-24] MEDS ORDERED: DEXAMETHASONE 4 MG TABLET (FP) ONE (15:38)
[2024-02-24] MEDS ORDERED: ACETAMINOPHEN 500 MG TABLET (FP) ONE (15:38)
[2024-02-24] MEDS ORDERED: MAG HYDROX/AL HYDROX/SIMETH 30 ML UNIT-DOSE CUP ONE (15:38)
[2024-02-24] MEDS: IBUPROFEN 200 MG TABLET PO ONE (15:42)
[2024-02-24] MEDS: METHOCARBAMOL 500 MG TABLET PO STA (15:42)
[2024-02-24] MEDS: ACETAMINOPHEN 500 MG TABLET (FP) PO ONE (15:43)
[2024-02-24] MEDS: DEXAMETHASONE 4 MG TABLET (FP) PO STA (15:43)
[2024-02-24] MEDS: MAG HYDROX/AL HYDROX/SIMETH 30 ML UNIT-DOSE CUP PO ONE (15:43)
== END 2024-02-24 15:59 | disposition home or self-care (01) ==
LOC: FER 14:43
DX: M54.12 Radiculopathy, cervical region (principal)
CPT/HCPCS: 99283-25